=== PATIENT | male | born 1960 | race African-American/Black ===

== ENCOUNTER 2018-02-25 23:45 | Emergency (ER) | payer OTHER ==
[~2018-02-25] VITALS: Ht 175.3 cm; Wt 72.6 kg
--- NOTE | 2018-02-26 00:03 | ED.ADGEN ---
Adult General Chief Complaint Chief Complaint ".. I ve been really short of breath.. coughing... kibry like when I get bronchitis.. or bad asthma attack..." HPI HPI Patient is a 57 year old male inmate from the [facility] who presents with above hx and complaints of dyspnea, cough, wheezing and chest discomfort. Patient states he's had problems with episodes of bronchitis, pneumonia, asthma exacerbations in the past. Recently has started smoking again after off cigarettes for several months. Patient has approximately 20 year tobacco use history. Patient has had some production of discolored sputum. No recent travel. No specific ill contacts. Patient up-to-date with vaccinations. Patient has never been intubated for his bronchitis or asthma exacerbations. Pt. t does have a history of renal cancer, had a complete nephrectomy 3 years ago on the right. Reportedly the cancer was contained within the confines of the right kidney with known metastasis to the nodes. No history of DVT, ambulatory embolisms, or Cardiac disorders. No history immunosuppression. Review of Systems Review of Systems Constitutional: Subjective complaints of fever or chills [] Eyes: Denies change in visual acuity, redness, or eye pain [] HENT: Denies nasal congestion or sore throat [] Respiratory: Complains of cough and shortness of breath [] Cardiovascular: No additional information not addressed in HPI [] GI: Denies abdominal pain, nausea, vomiting, bloody stools or diarrhea [] : Denies dysuria or hematuria [] Musculoskeletal: Denies back pain or joint pain [] Integument: Denies rash or skin lesions [] Neurologic: Denies headache, focal weakness or sensory changes [] Endocrine: Denies polyuria or polydipsia [] All other systems were reviewed and found to be within normal limits, except as documented in this note. Family History Family History Noncontributory Current Medications Current Medications Current Medications Medications (Trade) Dose Ordered Sig/Chai Start Time Stop Time Status Last Admin Dose Admin Albuterol Sulfate (Ventolin Hfa Inhaler) 60 puff STK-MED ONCE 02/26/18 03:30 02/26/18 03:32 DC Albuterol/ Ipratropium (Duoneb) 3 ml 1X ONCE 02/26/18 01:15 02/26/18 01:36 DC 02/26/18 01:35 3 ML Aspirin (Children'S Aspirin) 324 mg 1X ONCE 02/26/18 01:00 02/26/18 01:09 DC Azithromycin (Zithromax) 500 mg 1X ONCE 02/26/18 01:00 02/26/18 01:09 DC 02/26/18 01:26 500 MG Ceftriaxone Sodium 1 gm/ Sodium Chloride 50 ml @ 100 mls/hr 1X ONCE 02/26/18 00:15 02/26/18 00:44 UNV Ceftriaxone Sodium (Rocephin) 1 gm ONCE ONCE 02/26/18 01:15 02/26/18 01:16 DC 02/26/18 01:26 1 GM Enoxaparin Sodium (Lovenox 80mg Syringe) 70 mg 1X ONCE 02/26/18 01:15 02/26/18 01:16 DC Lactated Ringer's 1,000 ml @ 100 mls/hr Q10H 02/26/18 00:30 02/26/18 10:29 02/26/18 01:25 100 MLS/HR Methylprednisolone Sodium Succinate (SOLU-Medrol 125MG VIAL) 125 mg 1X ONCE 02/26/18 01:15 02/26/18 01:16 DC 02/26/18 01:26 125 MG Allergies Allergies Allergies Coded Allergies Type Severity Reaction Last Updated Verified No Known Drug Allergies 02/26/18 No Physical Exam Physical Exam Constitutional: Well developed, well nourished, Moderately acute distress, non- toxic appearance. [] HENT: Normocephalic, atraumatic, bilateral external ears normal, oropharynx moist, no oral exudates, nose rhinorrhea. Eyes: PERRLA, EOMI, conjunctiva normal, no discharge. [] Neck: Normal range of motion, no tenderness, supple, no stridor. [] Cardiovascular:Heart rate regular rhythm, no murmur [] Lungs & Thorax: Bilateral breath sounds equal apex scattered wheezing throughout on auscultation [] Abdomen: Bowel sounds normal, soft, no tenderness, no masses, no pulsatile masses. [] Old surgical scars. Skin: Warm, dry, no erythema, no rash. [] Back: No tenderness, no CVA tenderness. [] Extremities: No tenderness, no cyanosis, no clubbing, ROM intact, no edema. [] No cording appreciated. Neurologic: Alert and oriented X 3, normal motor function, normal sensory function, no focal deficits noted. [] Psychologic: Affect normal, judgement normal, mood normal. [] Current Patient Data Vital Signs Vital Signs Date Time Temp Pulse Resp B/P (MAP) Pulse Ox O2 Delivery O2 Flow Rate FiO2 02/26/18 01:37 98 Nasal Cannula 2.0 Lab Results Laboratory Tests Test 02/26/18 00:31 02/26/18 00:48 Urine Collection Type Unknown Urine Color Yellow Urine Clarity Clear Urine pH 6.5 Urine Specific Collins 1.020 Urine Protein Neg (NEG-TRACE) Urine Glucose (UA) Neg mg/dL (NEG) Urine Ketones (Stick) Neg mg/dL (NEG) Urine Blood Neg (NEG) Urine Nitrite Neg (NEG) Urine Bilirubin Neg (NEG) Urine Urobilinogen Dipstick 1 mg/dL (0.2 mg/dL) Urine Leukocyte Esterase Neg (NEG) Urine RBC 0 /HPF (0-2) Urine WBC Rare /HPF (0-4) Urine Squamous Epithelial Cells None /LPF Urine Bacteria 0 /HPF (0-FEW) Urine Sperm Present /HPF Urine Opiates Screen Neg (NEG) Urine Methadone Screen Neg (NEG) Urine Barbiturates Neg (NEG) Urine Phencyclidine Screen Neg (NEG) Urine Amphetamine/Methamphetamine Neg (NEG) Urine Benzodiazepines Screen Neg (NEG) Urine Cocaine Screen Neg (NEG) Urine Cannabinoids Screen Neg (NEG) Urine Ethyl Alcohol Neg (NEG) White Blood Count 5.1 x10^3/uL (4.0-11.0) Red Blood Count 5.36 x10^6/uL (4.30-5.70) Hemoglobin 16.1 g/dL (13.0-17.5) Hematocrit 47.1 % (39.0-53.0) Mean Corpuscular Volume 88 fL (79-100) Mean Corpuscular Hemoglobin 30 pg (25-35) Mean Corpuscular Hemoglobin Concent 34 g/dL (31-37) Red Cell Distribution Width 13.6 % (11.5-14.5) Platelet Count 190 x10^3/uL (140-400) Neutrophils (%) (Auto) 59 % (31-73) Lymphocytes (%) (Auto) 24 % (24-48) Monocytes (%) (Auto) 12 % (0-9) H Eosinophils (%) (Auto) 5 % (0-3) H Basophils (%) (Auto) 1 % (0-3) Neutrophils # (Auto) 3.0 x10^3uL (1.8-7.7) Lymphocytes # (Auto) 1.2 x10^3/uL (1.0-4.8) Monocytes # (Auto) 0.6 x10^3/uL (0.0-1.1) Eosinophils # (Auto) 0.3 x10^3/uL (0.0-0.7) Basophils # (Auto) 0.0 x10^3/uL (0.0-0.2) Prothrombin Time 10.7 SEC (9.4-11.4) Prothrombin Time INR 1.0 (0.9-1.1) PTT 30 SEC (23-33) D-Dimer (Linda) 0.67 mg/L (0.00-0.50) H Sodium Level 139 mmol/L (136-145) Potassium Level 4.0 mmol/L (3.5-5.1) Chloride Level 104 mmol/L (98-107) Carbon Dioxide Level 31 mmol/L (21-32) Anion Gap 4 (6-14) L Blood Urea Nitrogen 19 mg/dL (8-26) Creatinine 1.9 mg/dL (0.7-1.3) H Estimated GFR (Cockcroft-Gault) 44.3 Glucose Level 90 mg/dL (70-99) Calcium Level 9.0 mg/dL (8.5-10.1) Magnesium Level 2.0 mg/dL (1.8-2.4) Total Bilirubin 0.6 mg/dL (0.2-1.0) Direct Bilirubin 0.2 mg/dL (0.0-0.2) Aspartate Amino Transferase (AST) 23 U/L (15-37) Alanine Aminotransferase (ALT) 19 U/L (16-63) Alkaline Phosphatase 64 U/L (46-116) Creatine Kinase 279 U/L (39-308) Creatine Kinase MB (Mass) 2.5 ng/mL (0.0-3.6) Creatine Kinase MB Relative Index 0.9 % (0-4) Troponin I Quantitative < 0.017 ng/mL (0-0.055) RI-Zss-I-Type Natriuretic Peptide 109 pg/mL (0-124) Total Protein 8.3 g/dL (6.4-8.2) H Albumin 3.9 g/dL (3.4-5.0) Lipase 120 U/L (73-393) EKG EKG My interpretation EKG shows sinus rhythm at 83 bpm. No acute morphology.[] Radiology/Procedures Radiology/Procedures My interpretation of chest x-ray shows COPD type pattern. But no large localization or consolidation. Does have a normal cardiac silhouette.[] Course & Med Decision Making Course & Med Decision Making Pertinent Labs and Imaging studies reviewed. (See chart for details) Patient declines CT of chest currently. Exhibits UCAR capacity. Patient to stop smoking. Patient take prednisone 50 mg a day for 5 days. Patient to take Zithromax 250 a day for 5 days. Patient uses MDI 2 puffs 4 times a day. Patient return if any concerns. 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 Discussed risk of metastatic renal cell carcinoma. Must complete follow-up with oncology and nephrology. . Return if any concerns. Patient aware of the elevated d-dimer and associated risks of DVT and PE. Pt. currently wants no further eval. at this time. Pt. to return if any concerns or wished to complete US leg and CT of chest for pul PE or leg blood clots. [] Final Impression Final Impression 1. COPD exacerbation 2. History of renal cell carcinoma 3. History of bronchitis/asthma. 4. Tobacco abuse 5. Elevated creatinine 1.9 6. Elevated d-dimer 0.67[] Dragon Disclaimer Dragon Disclaimer This electronic medical record was generated, in whole or in part, using a voice recognition dictation system. LELAND LINTON MD Feb 26, 2018 00:03
[2018-02-26] MEDS ORDERED: IV RINGERS SOLUTION,LACTATED 1,000 ML IV SCH (00:30)
[2018-02-26] MEDS: ASPIRIN 81 MG TAB.CHEW PO ONE ×2 (01:00→01:26)
[2018-02-26] MEDS ORDERED: AZITHROMYCIN 250 MG TABLET. PO ONE (01:00)
[2018-02-26] MEDS ORDERED: ENOXAPARIN ** NOTE DOSE ** SYRINGE SQ ONE (01:15)
[2018-02-26] MEDS ORDERED: IPRATRPIUM/ALBUTEROL 0.5/2.5MG 3 ML NEBU. NEB ONE (01:15)
[2018-02-26] MEDS ORDERED: methylPREDNISolone SOD SUCC PF 125 MG/2 ML VIAL. IV ONE (01:15)
[2018-02-26] MEDS ORDERED: cefTRIAXone IV Push 1 GM VIAL. IVP ONE (01:15)
[2018-02-26 01:17] LABS: BASO % 1 % (0-3); EOS # 0.3 x10^3/uL (0.0-0.7); EOS % 5 % (0-3); HEMATOCRIT 47.1 % (39.0-53.0); HEMOGLOBIN 16.1 g/dL (13.0-17.5); LYMPH # 1.2 x10^3/uL (1.0-4.8); LYMPH % 24 % (24-48); MEAN CORPUSCULAR HEMOGLOBIN 30 pg (25-35); MEAN CORPUSCULAR HGB CONC 34 g/dL (31-37); MEAN CORPUSCULAR VOLUME 88 fL (79-100); MONO # 0.6 x10^3/uL (0.0-1.1); MONO % 12 % (0-9); NEUT % 59 % (31-73); PLATELET COUNT 190 x10^3/uL (140-400); RED BLOOD COUNT 5.36 x10^6/uL (4.30-5.70); RED CELL DISTRIBUTION WIDTH 13.6 % (11.5-14.5); WHITE BLOOD COUNT 5.1 x10^3/uL (4.0-11.0)
[2018-02-26 01:23] LABS: BACTERIA,URINE 0 /HPF (0-FEW); BILIRUBIN,URINE NEG (NEG); CLARITY,URINE CLEAR; COLOR,URINE YELLOW; GLUCOSE,URINE NEG (NEG); NITRITE,URINE NEG (NEG); RBC,URINE 0 /HPF (0-2); SPERM,URINE PRESENT /HPF; UROBILINOGEN,URINE 1 mg/dL (0.2 mg/dL); WBC,URINE RARE /HPF (0-4)
[2018-02-26 01:25] LABS: BARBITURATES NEG (NEG); BENZODIAZEPINES NEG (NEG); CANNABINOIDS NEG (NEG); COCAINE NEG (NEG); METHADONE NEG (NEG); OPIATES NEG (NEG); PHENCYCLIDINE NEG (NEG)
[2018-02-26 01:26] LABS: AMPHETAMINE/METHAMPHETAMINE NEG (NEG)
[2018-02-26 02:02] LABS: ALBUMIN 3.9 g/dL (3.4-5.0); CREATININE 1.9 mg/dL (0.7-1.3); DIRECT BILIRUBIN 0.2 mg/dL (0.0-0.2); GFR 44.3; TOTAL BILIRUBIN 0.6 mg/dL (0.2-1.0); TOTAL PROTEIN 8.3 g/dL (6.4-8.2)
[2018-02-26 03:10] VITALS: BP 141/80
[2018-02-26] MEDS ORDERED: ALBUTEROL SULFATE 8GM INHALER. INH ONE (03:30)
[2018-02-26] MEDS ORDERED: ALBUTEROL SULFATE 8GM INHALER. ONE (03:30)
[2018-02-26] MEDS ORDERED: PRED50TA PO (03:35)
[2018-02-26] MEDS ORDERED: AZIT250T PO (03:35)
--- NOTE | 2018-02-26 05:17 | RAD ---
EXAM: CHEST 2 VIEWS. HISTORY: Chest pain, shortness of breath, smoking history. COMPARISON: None. FINDINGS: Frontal and lateral views of the chest are obtained. Hyperinflation is consistent with chronic obstructive pulmonary disease. There are calcified granulomas bilaterally. There are no confluent infiltrates. There is no pneumothorax or pleural effusion. The heart is not enlarged. IMPRESSION: 1. Chronic obstructive pulmonary disease. No confluent infiltrates. Electronically signed by: Evangelist Duenas MD (02/26/2018 5:13 AM) [facility]
--- NOTE | 2018-02-27 06:28 | EKG ---
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
== END 2018-02-26 03:48 | disposition home or self-care (01) ==
LOC: ER 23:45 → EDBD 23:45 → ER 02-26 03:48
DX: J44.1 Chronic obstructive pulmonary disease with (acute) exacerbation (principal); F17.210 Nicotine dependence, cigarettes, uncomplicated; R79.89 Other specified abnormal findings of blood chemistry; R79.1 Abnormal coagulation profile; Z90.5 Acquired absence of kidney
CPT/HCPCS: 36415; 71046; 80048; 80076; 80307; 81001; 82553; 83690; 83735; 83880; 84443; 84484; 85025; 85379; 85610; 85730; 87040; 93005; 94640; 96374; 96375; 99285; J0456; J0696; J2930; J7120; J7620; J1650; 94664; G0479